=== PATIENT | male | born 1935 | race Caucasian/White ===

== ENCOUNTER 2016-08-21 16:07 | Emergency (ER) | payer MEDICARE ==
[~2016-08-21] VITALS: Ht 182.9 cm; Wt 79.1 kg
[2016-08-21 16:57] VITALS: BP 144/70; PULSE 66; RESP 15; O2SAT 97
--- NOTE | 2016-08-21 19:15 | DRSVH ---
PROCEDURE: CT BRAIN WITHOUT CONTRAST ([id number]) INDICATIONS: fall, head trauma TECHNIQUE: Noncontrast 4.5 mm thick angled axial sections acquired from the foramen magnum to the vertex, with c oronal reformats. COMPARISON: MR, STROKE PROTOCOL (PNL), 04/09/2009, 14:33. [facility], MR, IAC'S [employer]/O CO NTRAST, 01/02/2014, 10:59. FINDINGS: Image quality: Excellent. CSF spaces: Basal cisterns are patent. No extra-axial fluid collections. The ventricles are symmet jessica in size and shape. Brain: No intracranial bleeds or masses. There is cerebral volume loss for age, with resultant vent ricular and sulcal prominence. There are periventricular and deep white matter chronic small vessel ischemic changes. There is intracranial internal carotid artery atherosclerosis. Skull and face: Calvarium and visualized facial bones appear intact, without suspicious lesions. Ri ght frontal parietal scalp hematoma. Sinuses: Visualized sinuses and mastoids are clear. IMPRESSION: 1. No acute intracranial process. 2. Moderate atrophy and chronic microvascular ischemic changes. 3. Right frontal parietal scalp hematoma. Dictated by: Sameera Marie M.D. on 08/21/2016 at 19:11 Approved by: Sameera Marie M.D. on 08/21/2016 at 19:12
--- NOTE | 2016-08-21 20:18 | ED.REPORT ---
HPI-Trauma Minor / Fall Date of Service Aug 21, 2016 ED Provider: Dr. Garcia Pt is a healthy 81 y/o male presenting to the ED due to fall which occurred today. The patient fell about 4 feet off a step-deck trailer to the ground hitting his head. His chief complaint at this time is R shoulder pain. He c/o associated mild pleuritic chest pain, R-sided chest pain. Pt denies fever, chills, syncope, change in LOC, dizziness. The patient is unsure of how or why he fell but doesn't believe it to be a syncopal event. Nursing Notes Stated Complaint: GLF HIT HEAD Chief Complaint: General Complaint Nursing Notes Reviewed: Yes Allergies: Coded Allergies: No Known Allergies (Verified Allergy, Unknown, 03/01/14) Scheduled PRN Hydrocodone-Acetaminophen 5-325 mg (Hydrocodone-Acetaminophen 5-325 mg) 1 Each Tablet 1-2 TABLET PO Q4H PRN PRN For Pain General Time Seen by MD: 20:17 Chief Complaint Fall Hx Obtained From: Patient Arrived By: Walk-in Onset Occurred: 1 - 4 hours ago Symptom Duration: Since onset Location: Chest Shoulder right Quality: Painful Severity: Current: Moderate Severity: Maximum: Moderate Similar Sx Previous: No Past Medical History Past Medical History Episodic voming since mid s Past Surgical History Hemorrhoidectomy Smoking History Former Smoker Ambulatory Status Independent Review of Systems Constitutional: Denies: Chills, Fever Respiratory: Reports: Pleuritic pain, Denies: Shortness of breath Musculoskeletal: Reports: Extremity pain Neurologic: Denies: Abnormal movement, Bladder dysfunction, Bowel dysfunction, Change LOC, Confusion, Dizziness, Focal weakness, Headache, Lightheaded, Numbness, Problem walking, Seizure, Shaking, Slurred speech, Spinning sensation , Syncope, Unable to speak, Vision change, Weakness Complete sys rev & neg: except as marked. Cardiovascular: Reports: Chest pain GI: Denies: Abdominal pain, Nausea, Vomiting Physical Exam Initial Vital Signs Vital Signs (First) Date Time Temp Pulse Resp B/P Pulse Ox O2 Delivery O2 Flow Rate FiO2 08/21/16 16:57 36.7 66 15 144/70 97 Room Air Initial VS: Reviewed, Vital signs normal ENT: Mucous membranes moist, Conjunctiva normal, No scleral icterus Cardiovascular: Regular rate & rhythm, Heart sounds normal, Intact distal pulses Abdomen / GI: Soft, Non-tender, No guarding, No rebound, No distention Skin: Warm, Dry, No cyanosis Neurologic: Alert, Oriented, Nonfocal Psychiatric: Mood/affect normal, Behavior normal, Normal thought content General/Constitutional: Awake, Alert, No acute distress, Well appearing, Cooperative, Not toxic appearing Neck: Atraumatic, Supple, No meningismus, No midline vertebral tend Head / Eyes: Normocephalic, PERRL Contusion over right parietal area R-sided scalp abrasion Respiratory / Chest: Breath sounds NL, Breath sounds = bilat, No respiratory distress, No rales, No rhonchi, No wheezing, No retractions, No stridor Tenderness with palpation of right chest wall Upper Extremity / MS: No deformity, Neurologic intact, Vascular intact Tenderness to right shoulder Abrasions to right shoulder Interpretation & Diagnostics Lab Results Interpretation Result Diagram: 08/21/16204408/21/162044 Test 08/21/16 20:45 White Blood Count 12.6th/mm3 (3.8-10.1) Red Blood Count 4.47mil/mm3 (4.40-5.80) Hemoglobin 14.4g/dL (13.8-17.2) Hematocrit 42.2% (41.0-50.0) Mean Corpuscular Volume 94.4fL (81-100) Mean Corpuscular Hemoglobin 32.2pg (27.0-35.0) Mean Corpuscular Hemoglobin Concent 34.1% (32.0-37.0) Red Cell Distribution Width 12.7% (12.3-15.4) Platelet Count 141bil/L (150-400) Neutrophils (%) (Auto) 88.3% (40-74) Lymphocytes (%) (Auto) 3.6% (14-46) Monocytes (%) (Auto) 7.6% (4-12) Eosinophils (%) (Auto) 0% (0-5) Basophils (%) (Auto) 0.3% (0-3) Sodium Level 140mEq/L (134-144) Potassium Level 4.5mEq/L (3.5-5.2) Chloride Level 102mEq/L (97-108) Carbon Dioxide Level 24mmol/L (18-29) Blood Urea Nitrogen 18mg/dL (8-27) Creatinine 0.90mg/dL (0.76-1.27) Estimat Glomerular Filtration Rate 86mL/min (>59) Glucose Level 163mg/dL (60-99) Calcium Level 9.0mg/dL (8.5-10.1) Magnesium Level 1.9mg/dL (1.6-2.6) Total Bilirubin 1.1mg/dL (0.0-1.2) Aspartate Amino Transf (AST/SGOT) 20U/L (0-50) Alanine Aminotransferase (ALT/SGPT) 10U/L (0-44) Alkaline Phosphatase 74U/L (25-160) Troponin T 0.010ug/L (0.0-0.011) Total Protein 7.0g/dL (6.4-8.4) Albumin 4.1g/dL (3.4-5.0) ECG Interpretation ECG Interpretation: 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 Dictated by: Sameera Marie M.D. on 08/21/2016 at 22:03 Approved by: Sameera Marie M.D. on 08/21/2016 at 22:03 View: Portable, 1 view Interpretation / Wet Read by: Interpret - Radiologist X-Ray Interpretation Xray Interpretation: IMPRESSION: Partially visualized rib fractures as above. Dictated by: Sameera Marie M.D. on 08/21/2016 at 22:04 Approved by: Sameera Marie M.D. on 08/21/2016 at 22:04 X-Ray Ordered: Humerus right Interpretation / Wet Read by: Interpret - Radiologist Xray Interpretation: IMPRESSION: Right lateral third, fourth and potentially fifth rib fractures. Dictated by: Sameera Marie M.D. on 08/21/2016 at 22:02 Approved by: Sameera Marie M.D. on 08/21/2016 at 22:03 Study Performed: Ribs Interpretation / Wet Read by: Interpret - Radiologist Xray Interpretation: IMPRESSION: Right lateral third, fourth and potentially fifth rib fractures without pneumothorax. Dictated by: Sameera Marie M.D. on 08/21/2016 at 22:00 Approved by: Sameera Marie M.D. on 08/21/2016 at 22:02 X-Ray Ordered: Shoulder right Interpretation / Wet Read by: Interpret - Radiologist CT Head Interpretation IMPRESSION: 1. No acute intracranial process. 2. Moderate atrophy and chronic microvascular ischemic changes. 3. Right frontal parietal scalp hematoma. Dictated by: Sameera Marie M.D. on 08/21/2016 at 19:11 Approved by: Sameera Marie M.D. on 08/21/2016 at 19:12 Study: Head CT no contrast Interpretation / Wet Read by: Interpret - Radiologist Re-Eval/Medical Decision Med Decision/Clinical Course 81 yo otherwise healthy male presents after fall off 4 foot step. 3 right sided rib fractures, R shoulder contusion/abrasion, R scalp hematoma and R scalp abrasion are his identified injuries. He did have R shoulder pain but no shoulder dislocation or fractures are noted on exam or by xray. Pain was controlled with advil alone and pt did not want narcotics. Small Rx given with instructions for deep breathing to prevent pneumonia. No mechanism was identified for patient fall and no EKG changes or arrhythmias were noted today. Hyperglycemia was noted and pt was advised to f/u with PCP regarding this abnormality as well as for a recheck of his injuries here. Source of Hx: Old records Re-Evaluation/Progress : Time of Eval: 23:18 Re-Evaluation/Progress Note: Pt rechecked. Family now in room. Informed pt of plan for treatment. Pt understands and agrees with plan for treatment. F/U instructions and RTER warnings given. All questions addressed. Counseled Regarding: Diagnosis, Lab results, Need for follow-up, When/why to return to ED Discharge & Departure Impression: Primary Impression: Multiple rib fractures Encounter type: initial encounter Fracture type: closed Laterality: right Qualified Code: S22.41XA - Multiple fractures of ribs, right side, initial encounter for closed fracture Additional Impressions: Fall Encounter type: initial encounter Qualified Code: W19.XXXA - Unspecified fall, initial encounter Contusion of shoulder, right Scalp hematoma Encounter type: initial encounter Qualified Code: S00.03XA - Contusion of scalp, initial encounter Hyperglycemia Leukocytosis Leukocytosis type: other Qualified Code: D72.828 - Other elevated white blood cell count Disposition: Home Discharge Condition All VS Reviewed: Yes Condition: Improved Patient Instructions: Rib Fracture (ED) Additional Instructions: Thank you for seeking care at the emergency room. It appears that you fractured 2 or 3 ribs of your right chest due to the fall. The head CT, EKG, and labs today were normal. The x-ray of your shoulder and arm were also normal. Your glucose today was 163 which is mildly elevated. I recommend you discuss this with your primary care doctor. Our primary goal today in the Emergency Department was to evaluate you for any life-threatening conditions. Your evaluation was reassuring. Every hour take 3-4 deep breaths. You will be discharged with a prescription for hydrocodone which you can take as needed for pain if advil is not enough . You should follow-up with your primary doctor in the next week for a recheck. You should return to the Emergency Department immediately if you develop worsening chest pain, shortness of breath, vomiting, fever, severe cough, or any other concerning signs or symptoms. Thank you for letting us partake in your care today. Referrals: Curry Bright MD (PCP) Scribe Attestation Portions of this note were transcribed by Jake Blake. I, Dr. Garcia personally performed the history, physical exam and medical decision-making; I reviewed and confirmed the accuracy of the information in the transcribed note. Signed by Yousif Fontanez, 08/21/162049 copies to: Curry Bright MD, Gary R DO Aug 21, 2016 20:17 JAKE BLAKE Aug 21, 2016 20:33
[2016-08-21 20:59] LABS: BASOPHILS % (AUTO) 0.3 % (0-3); EOSINOPHILS % (AUTO) 0 % (0-5); MONOCYTES % (AUTO) 7.6 % (4-12); Mean Corpuscular Hemoglobin 32.2 pg (27.0-35.0); Mean Corpuscular Volume 94.4 fL (81-100); NEUTROPHILS % (AUTO) 88.3 % (40-74); Platelet Count 141 bil/L (150-400)
[2016-08-21 21:23] LABS: TROPONIN T 0.01 ug/L (0.0-0.011)
[2016-08-21 21:35] LABS: Magnesium 1.9 mg/dL (1.6-2.6)
--- NOTE | 2016-08-21 22:04 | DRSVH ---
PROCEDURE: X-RAY RIGHT SHOULDER, MINIMUM TWO VIEWS ([id number]) INDICATIONS: fall, right shoulder pain TECHNIQUE: 3 views of the shoulder were acquired. COMPARISON: [facility], CR, XR RIBS UNILAT 2VW RT, 08/21/2016, 21:23. [facility], CR, XR CHEST 1VW (PORTABLE), 08/21/2016, 21:29. [facility], CR, XR HUMERUS 2VW RT, 08/21/2016, 21:32. FINDINGS: Bones: There are right lateral third and fourth and potentially fifth rib fractures. No pneumothorax. Soft tissues: No suspicious soft tissue calcifications. IMPRESSION: Right lateral third, fourth and potentially fifth rib fractures without pneumothorax. Dictated by: Sameera Marie M.D. on 08/21/2016 at 22:00 Approved by: Sameera Marie M.D. on 08/21/2016 at 22:02
--- NOTE | 2016-08-21 22:05 | DRSVH ---
PROCEDURE: X-RAY RIGHT RIBS, TWO VIEWS ([id number]) INDICATIONS: fall, right rib pain TECHNIQUE: 3 views of the right ribs were acquired. COMPARISON: None. FINDINGS: Surgical changes and devices: None. Bones and chest wall: Right lateral third, fourth and potentially fifth rib fractures. Lungs and pleura: The visualized lung appears clear. No pleural effusions or pneumothorax are visib le. IMPRESSION: Right lateral third, fourth and potentially fifth rib fractures. Dictated by: Sameera Marie M.D. on 08/21/2016 at 22:02 Approved by: Sameera Marie M.D. on 08/21/2016 at 22:03
--- NOTE | 2016-08-21 22:06 | DRSVH ---
PROCEDURE: X-RAY RIGHT HUMERUS, MINIMUM TWO VIEWS ([id number]) INDICATIONS: fall, right shoulder pain TECHNIQUE: 3 views of the humerus were acquired. COMPARISON: None. FINDINGS: Bones: Partially visualized right third, fourth and potential fifth rib fractures. Soft tissues: No suspicious soft tissue calcifications. IMPRESSION: Partially visualized rib fractures as above. Dictated by: Sameera Marie M.D. on 08/21/2016 at 22:04 Approved by: Sameera Marie M.D. on 08/21/2016 at 22:04
--- NOTE | 2016-08-21 22:06 | DRSVH ---
PROCEDURE: X-RAY CHEST ONE VIEW, PORTABLE ([id number]) INDICATIONS: fall, right shoulder pain TECHNIQUE: One view of the chest was acquired. COMPARISON: None. FINDINGS: Surgical changes and devices: None. Lungs and pleura: No pleural effusions or pneumothorax. Lungs are clear. Mediastinum: Mediastinal contours appear normal. Heart size is normal. Bones and chest wall: Right lateral third, fourth and fifth rib fractures. IMPRESSION: Right lateral third, fourth and potential fifth rib fractures. Dictated by: Sameera Marie M.D. on 08/21/2016 at 22:03 Approved by: Sameera Marie M.D. on 08/21/2016 at 22:03
[2016-08-21] MEDS ORDERED: HYDR-4003 PO (23:42)
[2016-08-22 00:11] VITALS: BP 107/59; PULSE 78; RESP 16; O2SAT 96
[2016-08-26] MEDS ORDERED: CeFAZolin 2 Gm/50 mL D5W IV Premix IV ONE (06:00)
== END 2016-08-22 00:12 | disposition home or self-care (01) ==
LOC: SED 16:07
DX: S22.41XA Multiple fractures of ribs, right side, initial encounter for closed fracture (principal); S00.03XA Contusion of scalp, initial encounter; S40.011A Contusion of right shoulder, initial encounter; W17.89XA Other fall from one level to another, initial encounter; Y93.89 Activity, other specified; Y92.9 Unspecified place or not applicable; Y99.9 Unspecified external cause status; Z87.891 Personal history of nicotine dependence; D72.828 Other elevated white blood cell count; R73.9 Hyperglycemia, unspecified